=== PATIENT | female | born 1955 | race Caucasian/White ===

== ENCOUNTER 2016-06-06 20:50 | Emergency (ER) | payer BC, OTHER ==
[2016-06-06 20:56] VITALS: BP 161/89; BMI 27.4
--- NOTE | 2016-06-06 21:38 | DR.GENAD ---
HPI - PCP Primary Care Physician: [email or web address] - HPI Comment HPI Comment: PATIENT FELL TONIGHT AND HIT HER LEFT RIB UNDER THE BREAST AND IS IN PAIN. DID NOT HIT HEAD. NO NECK PAIN. NO LOC. PAIN INCREASES WITH MOVEMENT. - Complaint/Symptoms Chief Complaint Doctors Comments: LEFT RIB PAIN. FELL. Chief Complaint:: pt states" i fell and hit mt lt ribs hard on the ground" - Nurses notes reviewed Nurses Notes Review: Yes - Source History Provided: Patient - Mode of Arrival Mode of Arrival: Ambulatory - Timing Onset of Chief Complaint: 06/06/16 Came on: Suddenly - Duration Duration: Constant Duration: Hours - Severity Severity: Moderate PMH - PMH Past Medical History: Yes Past Medical History: Hypertension Past Surgical History: Yes Surgical History: Appendectomy - Family History History of Family Medical Conditions: Yes Family Medical History: Coronary Artery Disease, Heart Failure, Sudden Cardiac - Social History Does any household member use tobacco: No Do you use any recreational Drugs:: No Lives With: Family Lives Where: Home - infectious screening In the last 2 months have you had wt loss of >10#?: NO Have you had fever, night sweats or hemotysis?: No Have you traveled outside the country in the last 6 months?: No Isolation: Standard ROS - Review of Systems Constitutional: No Symptoms Reported Eyes: No Symptoms Reported ENTM: No Symptoms Reported Respiratoy: No Symptoms Reported Cardiovascular: Chest Pain (CHEST WALL AND RIB PAIN) Genitourinary: No Symptoms Reported Neurological: No Symptoms Reported Musculoskeletal: Left, Chest wall, Rib(s) Integumentary: Bruises (L) Hematologic/Lymphatic: No Symptoms Reported Endocrine: No Symptoms Reported All Other Systems: Reviewed and Negative PE - Vital Signs Vitals: Temperature 98.2 F Pulse Rate 76 Respiratory Rate 18 Blood Pressure [Right Arm] 132/78 Blood Pressure 161/89 O2 Sat by Pulse Oximetry 98 - General Limitations: No Limitations General Appearance: Alert - Head Head Exam: Normal Inspection - Eyes Eye exam: Normal Appearance - ENT ENT Exam: Normal External Ear Exam External Ear Exam: Normal External Inspection TM/Canal Exam: Bilateral Normal Nose Exam: Normal Nose Exam Mouth Exam: Normal Inspection Throat Exam: Normal Inspection - Neck Neck Exam: Trachea Midline - Chest Chest Inspection: Symmetric Chest Wall Rise - Respiratory Respiratory Exam: Chest Wall Tenderness (LEFT) Respiratory Exam: Bilateral Clear to Auscultation - Cardiovascular Cardiovascular Exam: Regular Rate, Normal Rhythm, Normal Heart Sounds - Abdominal Exam Abdominal Exam: Normal Inspection - Extremities Extremities Exam: Normal Inspection - Back Back Exam: Normal Inspection - Neurologic Neurological Exam: Alert, Oriented X3 - Psychiatric Psychiatric Exam: Anxious - Skin Skin Exam: Erythema, Other (BRUISING LT CHEST) MDM - Additional Information Additional Information Obtained From: Family - Differential Diagnosis Differential Diagnosis: CONTUSIONS AND FRACTION LT RIBS Course - Treatment Treatment: SEE ORDERS - Education/Counseling Education/Counseling: Patient, Family, Education Educated On: Treatment, Diagnosis, Needs for Follow Up ROR - XRAY XRAY Interpreted by: Radiologist XRAY Findings: REPORT DISCUSS WITH PATIENT. - Diagnosis Discharge Problem: Contusion of rib on left side Qualifiers: Encounter type: initial encounter Qualified Code(s): S20.212A - Contusion of left front wall of thorax, initial encounter - Discharge Plan Disposition: HOME, SELF-CARE Condition: Stable Prescriptions: Acetaminophen W/ Codeine [Tylenol/Codeine #3 300-30 mg] 1 tab PO Q4-6H PRN #15 tab PRN Reason: Pain Ibuprofen [MOTRIN TAB 600 MG *] 600 mg PO TID PRN #21 tab PRN Reason: Pain/Inflammation - Follow ups/Referrals Follow ups/Referrals: N[facility],None [Primary Care Provider] - 2 days - Instructions Instructions: Rib Contusion Additional Instructions: RETURN TO ED IF WORSE.
[2016-06-06] MEDS ORDERED: NORFLEX INJ IM PRN (21:42)
[2016-06-06] MEDS ORDERED: TORADOL 60 MG VIAL IM ONE (21:42)
[2016-06-06] MEDS ORDERED: NORFLEX INJ ONE (21:50)
[2016-06-06] MEDS ORDERED: TORADOL 60 MG VIAL ONE (21:50)
--- NOTE | 2016-06-06 22:08 | RAD ---
HISTORY: Fall with left rib pain Study: Single frontal view of the chest and 3 views of the ribs. Comparison: None Findings: The cardiomediastinal silhouette is normal. No focal consolidations, pleural effusions or pneumothor ax. Osseous structures demonstrate no acute abnormality. No acute displaced rib fractures. IMPRESSION: 1. No acute displaced rib fractures. 2. No acute cardiopulmonary process. Reported By:
== END 2016-06-06 22:37 | disposition home or self-care (01) ==
LOC: ER 20:50
DX: S20.212A Contusion of left front wall of thorax, initial encounter (principal); W01.198A Fall on same level from slipping, tripping and stumbling with subsequent striking against other object, initial encounter; Y92.9 Unspecified place or not applicable
CPT/HCPCS: 71111; 96372; 99282; 99283; J1885; J2360

== ENCOUNTER 2024-06-11 07:44 | Observation (INO) ==
[2024-06-11] MEDS: NOZIN NASAL SANITIZER TP ONE (08:42)
[2024-06-11] MEDS: LR 1,000 ML IV 1,000 ML IV ONE ×2 (08:43→11:37)
[2024-06-11] MEDS ORDERED: PEPCID 20 MG VIAL ONE (09:48)
[2024-06-11] MEDS ORDERED: TORADOL 30 MG VIAL ONE (09:48)
[2024-06-11] MEDS ORDERED: OFIRMEV IV 1000 MG VIAL 1,000 MG/100 ML VIAL IV ONE (09:48)
[2024-06-11] MEDS ORDERED: DIPRIVAN VIAL 20 ML ONE (09:48)
[2024-06-11] MEDS ORDERED: REGLAN INJ 10 MG VIAL ONE (09:48)
[2024-06-11 09:51] VITALS: BMI 28.8
[2024-06-11] MEDS ORDERED: FENTANYL VIAL INJ 100 mcg ONE (09:51)
[2024-06-11] MEDS: NS 100 ML IV 100 ML ONE (09:53)
[2024-06-11] MEDS: ANCEF VIAL 1 GRAM ONE (09:53)
[2024-06-11] MEDS ORDERED: BARHEMSYS INJ IVP PRN (09:57)
[2024-06-11] MEDS ORDERED: BENADRYL INJ 50 MG VIAL IVP PRN (09:57)
[2024-06-11] MEDS ORDERED: ZOFRAN INJ 4 MG VIAL IVP PRN (09:57)
[2024-06-11] MEDS ORDERED: DILAUDID INJ IVP PRN (09:57)
[2024-06-11] MEDS: ZOFRAN INJ 4 MG VIAL IVP PRN ×2 (10:00→17:20)
[2024-06-11] MEDS: REGLAN INJ 10 MG VIAL IVP PRN (10:00)
[2024-06-11] MEDS: VERSED IVP PRN (10:00)
[2024-06-11] MEDS: PEPCID 20 MG VIAL IVP PRN (10:00)
[2024-06-11] MEDS: LR 1,000 ML IV 1,000 ML IV PRN (10:00)
[2024-06-11] MEDS ORDERED: ULTANE GAS IN ONE (10:02)
[2024-06-11] MEDS ORDERED: XYLOCAINE 2 % (PLAIN) ONE (10:02)
[2024-06-11] MEDS ORDERED: PRECEDEX INJ VIAL ONE (10:02)
[2024-06-11] MEDS: ANCEF VIAL 1 GRAM IV PRN (10:03)
[2024-06-11] MEDS ORDERED: XYLOCAINE 2 % (PLAIN) PRN (10:10)
[2024-06-11] MEDS: OFIRMEV IV 1000 MG VIAL 1,000 MG/100 ML VIAL IV PRN (10:15)
[2024-06-11] MEDS: POLYMYXIN B SULFATE ONE (10:23)
[2024-06-11] MEDS: DECADRON INJ IVP PRN (10:23)
[2024-06-11] MEDS: XYLOCAINE 1 % (PLAIN) ONE (10:23)
[2024-06-11] MEDS: FENTANYL VIAL INJ 100 mcg IVP PRN (10:28)
[2024-06-11] MEDS: TORADOL 30 MG VIAL IVP PRN (10:30)
[2024-06-11] MEDS ORDERED: DILAUDID INJ ONE (10:55)
[2024-06-11] MEDS: NEO-SYNEPHRINE INJ IVP PRN (11:13)
[2024-06-11] MEDS: DIPRIVAN IVP PRN (11:38)
[2024-06-11] MEDS: DILAUDID INJ IVP PRN ×2 (11:47→17:21)
[2024-06-11] MEDS: BACTROBAN TOPICAL OINT ONE (11:58)
[2024-06-11] MEDS: PRECEDEX INJ VIAL IVP PRN (11:59)
[2024-06-11] MEDS ORDERED: ANCEF VIAL 1 GRAM IVP SCH (14:00)
[2024-06-11] MEDS: D5 1/2 NS 1,000 ML 1,000 ML IV SCH (14:03)
[2024-06-11] MEDS: ANCEF VIAL 1 GRAM 1 G in NS 100 ML IV 100 ML IV SCH (14:03)
[2024-06-11] MEDS: VERSED ONE (18:26)
[2024-06-11] MEDS: ZOFRAN INJ 4 MG VIAL ONE (18:26)
[2024-06-11] MEDS: BENADRYL CAP/TAB 25 MG PO PRN (21:44)
[2024-06-12] MEDS: PERCOCET TAB 5/325 MG PO PRN (02:16)
[2024-06-12 04:20] VITALS: RESP 20
[2024-06-12 05:57] LABS: BASOPHILS # (AUTO) 0.1 X10^3/uL (0.0-0.1); BASOPHILS % (AUTO) 0.7 % (0.2-1.0); HEMATOCRIT 35.7 % (36.0-47.0); LYMPHOCYTES # (AUTO) 1.7 X10^3/uL (1.3-2.9); LYMPHOCYTES % (AUTO) 11.5 % (21.0-51.0); MEAN CORPUSCULAR HEMOGLOBIN 31.4 pg (27.0-34.0); MEAN CORPUSCULAR HGB CONC 33.6 g/dL (33.0-35.0); MEAN CORPUSCULAR VOLUME 93.3 fL (80.0-100.0); MEAN PLATELET VOLUME 7.9 fL (7.4-11.0); MONOCYTES % (AUTO) 6.9 % (0.0-13.0); NEUTROPHILS # (AUTO) 11.9 x10^3/uL (2.2-4.8); NEUTROPHILS % (AUTO) 80.9 % (42.0-75.0); PLATELET COUNT 247 X10^3/uL (150.0-450.0); RED BLOOD COUNT 3.83 X10^6/uL (3.5-5.4); WHITE BLOOD COUNT 14.7 X10^3/uL (3.6-10.0)
[2024-06-12 06:12] LABS: ALANINE AMINOTRANSFERASE 20 Units/L (12-78); ALBUMIN 3.5 g/dL (3.4-5.0); ALKALINE PHOSPHATASE 81 Units/L (46-116); ASPARTATE AMINO TRANSFERASE 18 Units/L (15-37); BLOOD UREA NITROGEN 18 mg/dL (7-18); CALCIUM 8.6 mg/dL (8.5-10.1); CARBON DIOXIDE 25.1 mmol/L (21-32); CHLORIDE 100 mmol/L (98-107); COR NA(FOR HYPERGLY) 137 mmol/L (136-145); CREATININE 0.99 mg/dL (0.55-1.02); GLUCOSE 157 mg/dL (65-99); POTASSIUM 4.4 mmol/L (3.5-5.1); SODIUM 136 mmol/L (136-145); TOTAL PROTEIN 7.5 g/dL (6.4-8.2); eGFR NON BLACK RACES 59 (>60)
--- NOTE | 2024-06-12 07:32 | RAD ---
EXAM:Portable chestHISTORY:Port placementCOMPARISON:04/04/2023FINDINGS:T here is a new left-sided port present. Its tip is in the expected position of the superior vena cava near the cavoatrial junction. No pneumothorax. Heart size is accentuated by hypoinflation. It is likely upper limits normal. Winnie are normal. Lung crump are clear. No pleural effusions identified. Bony thorax is unremarkable.IMPRESSION:Left port tip superior vena cava near the cavoatrial junctionLungs are mildly hypoinflated but free of acute infiltrates, pleural effusions and pneumothoraces.THIS IS AN ELECTRONICALLY VERIFIED FINAL REPORT06/12/2024 7:28 AM - Electronically signed by Rupert Arteaga MD
[2024-06-12] MEDS: LOVENOX INJ 40 MG SYR SC SCH (08:33)
[2024-06-12] MEDS: DIOVAN TAB 160 MG PO SCH (08:36)
[2024-06-12] MEDS: HYDROCHLOROTHIAZIDE 12.5 MG CAP PO SCH (08:36)
[2024-06-12 09:48] VITALS: O2SAT 96
[2024-06-12 10:02] VITALS: BP 114/59; PULSE 68; TEMP 97.4
== END 2024-06-12 09:50 | disposition home or self-care (01) ==
LOC: SURG1 07:44 → MED/SURG 12:56 → INTOOBSV 12:56
PROVIDERS: ADMIT Surgery; ATTEND Surgery
DX: R73.09 Other abnormal glucose; C50.911 Malignant neoplasm of unspecified site of right female breast; Z45.2 Encounter for adjustment and management of vascular access device; Z90.13 Acquired absence of bilateral breasts and nipples